=== PATIENT | female | born 1960 | race Caucasian/White ===

== ENCOUNTER → 2019-11-08 | Outpatient (REF) | payer OTHER | LOC: M LAB REF 08:50 | PROVIDERS: ATTEND Dermatology | DX: L57.0 Actinic keratosis (principal); Z85.828 Personal history of other malignant neoplasm of skin ==

== ENCOUNTER 2025-01-17 08:49 | Day surgery (SDC) | payer OTHER ==
[~2025-01-17] VITALS: Ht 167.6 cm; Wt 109.9 kg
[~2025-01-17 08:49] MED LIST: CETI10CH4 PO; VENTAER INH; ZOLO100T PO
[2025-01-17 09:49] VITALS: TEMP 98.4
[2025-01-17 10:25] VITALS: BP 123/58; O2SAT 96
== END 2025-01-17 10:26 | disposition home or self-care (01) ==
LOC: M OPP 08:49
PROVIDERS: ATTEND Surgery
DX: Z12.11 Encounter for screening for malignant neoplasm of colon (principal); Z88.0 Allergy status to penicillin; Z88.1 Allergy status to other antibiotic agents; Z79.899 Other long term (current) drug therapy